=== PATIENT | female | born 1965 | race Hispanic/Latino ===

== ENCOUNTER 2021-01-16 07:26 | Observation (INO) | payer MEDICARE ==
[2021-01-16] VITALS (7 sets, daily range): BP systolic 102–167; BP diastolic 62–92
[~2021-01-16] VITALS: Ht 236.2 cm; Wt 141.3 kg
[~2021-01-16 07:26] MED LIST: ACET-2247 PO; APIX2.5T PO; HYDR-4060 PO; LEVO200T10 PO; VITAMIN D3 PO
[2021-01-16] MEDS ORDERED: MORPHINE 4 MG SYG IVP ONE (08:00)
[2021-01-16] MEDS ORDERED: ONDANSETRON 4MG INJ IVP ONE (08:00)
[2021-01-16 08:36] LABS: BASOPHILS % (AUTO) 0.2 % (0.0-5.0); EOSINOPHILS % (AUTO) 4.3 % (0.0-8.0); HEMATOCRIT 30.7 % (36-48); LYMPHOCYTES % (AUTO) 28.9 % (21.0-51.0); MEAN CORPUSCULAR HEMOGLOBIN 26.8 pg (27.0-33.0); MEAN CORPUSCULAR VOLUME 92.5 fL (79-99); MONOCYTES % (AUTO) 6.5 % (3.0-13.0); NEUTROPHILS % (AUTO) 59.4 % (40.0-77.0); PLATELET COUNT (AUTO) 250 K/uL (130-400); RED BLOOD CELL COUNT(AUTO) 3.32 MIL/uL (4.00-5.50); RED CELL DISTRIBUTION WIDTH 14.7 % (11.0-15.5)
[2021-01-16 08:46] LABS: CARBON DIOXIDE 29 mmol/L (21-32); CHLORIDE 108 mmol/L (101-111); CREATININE 0.9 mg/dL (0.5-1.5); GLOMERULAR FILTR. RATE CALC 69 mL/min (>60); GLUCOSE,RANDOM 100 mg/dL (70-105); POTASSIUM 3.4 mmol/L (3.5-5.1); SODIUM SERUM 144 mmol/L (136-145); UREA NITROGEN, BLOOD 16 mg/dL (7-18)
[2021-01-16 08:50] LABS: ALANINE AMINOTRANSFERASE 50 U/L (12-78); ALBUMIN 2.9 g/dL (3.5-5.0); AMYLASE 23 U/L (25-115); ASPARTATE AMINOTRANSFERASE 41 U/L (10-37); BILIRUBIN,TOTAL 0.4 mg/dL (0.2-1.0); TOTAL PROTEIN, SERUM 6.6 g/dL (6.0-8.3)
[2021-01-16 08:54] LABS: LIPASE < 50 U/L (114-286)
[2021-01-16] MEDS ORDERED: IOHEXOL 350 MG/ML 100ML INFUS..BTL IV ONE (09:53)
[2021-01-16 11:01] LABS: APPEARANCE,URINE Clear (CLEAR); BILIRUBIN,URINE Negative (NEGATIVE); COLOR,URINE Yellow (YELLOW); GLUCOSE, URINE (UA) Negative (NEGATIVE); KETONES,URINE Trace mg/dL (NEGATIVE); LEUKOCYTE ESTERASE ,URINE Negative (NEGATIVE); NITRATE,URINE Negative (NEGATIVE); OCCULT BLOOD,URINE Negative (NEGATIVE); PROTEIN,URINE POS 1+ mg/dL (NEGATIVE)
[2021-01-16 11:03] LABS: BACTERIA,URINE Rare /HPF (None Seen); RBC,URINE 0-1 /HPF (0-1); SQUAMOUS EPITHELIAL CELL,UR Rare /HPF (0-2); WBC,URINE 0-1 /HPF (0-1)
[2021-01-16 11:06] LABS: HCG,QUAL RESULT NEGATIVE (NEGATIVE)
[2021-01-16] MEDS ORDERED: MORPHINE 4 MG SYG ONE (11:18)
[2021-01-16] MEDS: MORPHINE 4 MG SYG IV SCH (11:30)
[2021-01-16 11:56] LABS: INR 1.06 (0.85-1.15); PROTHROMBIN TIME 11.5 SEC (9.6-11.6)
[2021-01-16] MEDS ORDERED: LACTULOSE 20 GM/30 ML UDCUP PO PRN (13:00)
[2021-01-16] MEDS ORDERED: PIP/TAZ ZOSYN 3.375G 3.375 GM VIAL IVPB SCH (13:00)
[2021-01-16] MEDS ORDERED: ONDANSETRON 4MG INJ IVP PRN (13:00)
[2021-01-16] MEDS ORDERED: 0.9%NACL 50ML IV SCH (13:00)
[2021-01-16] MEDS ORDERED: LIDOCAINE HCL-MPF 1% 2ML VIAL IV PRN ×2 (13:00)
[2021-01-16] MEDS ORDERED: ACETAMINOPHEN 650MG ER TAB PO PRN (13:00)
[2021-01-16] MEDS ORDERED: POTASSIUM CHLORIDE 10% ELIXIR 20 MEQ/15 ML UDCUP PO PRN (13:00)
[2021-01-16] MEDS ORDERED: POTASSIUM CHLORIDE 20MEQ/100ML 100 ML IV PRN ×2 (13:00)
[2021-01-16] MEDS: LACTATED RINGERS 1000ML 1,000 ML IV SCH (13:01)
[2021-01-16] MEDS: KCL 20 MEQ ERTAB PO PRN ×2 (13:14→15:06)
[2021-01-16] MEDS: ZOSYN 3.375GM+NS 50ML 50 ML IV SCH ×2 (13:17→21:05)
[2021-01-16] MEDS: HYDROCODONE/ACETAMINOPHEN 5/325 MG TAB PO PRN (15:11)
[2021-01-16] MEDS: MORPHINE 2 MG SYG IVP PRN (19:33)
[2021-01-16] MEDS ORDERED: 0.9%NACL 100ML 100 ML ONE (21:03)
[2021-01-16] MEDS: FAMOTIDINE 20MG VIAL IV SCH (21:05)
[2021-01-17] VITALS (7 sets, daily range): BP systolic 98–128; BP diastolic 56–77
[2021-01-17] MEDS: MORPHINE 2 MG SYG IVP PRN ×4 (00:16→19:27)
[2021-01-17 00:52] LABS: HEMATOCRIT 29.6 % (36-48)
[2021-01-17] MEDS: GUAIFENESIN-DM 200/20 MG 10 ML PO PRN ×3 (03:49→21:58)
[2021-01-17 04:48] LABS: BASOPHILS % (AUTO) 0.3 % (0.0-5.0); EOSINOPHILS % (AUTO) 11.6 % (0.0-8.0); HEMATOCRIT 27.7 % (36-48); LYMPHOCYTES % (AUTO) 22.4 % (21.0-51.0); MEAN CORPUSCULAR HEMOGLOBIN 26.3 pg (27.0-33.0); MEAN CORPUSCULAR HGB CONC 28.5 g/dL (32.0-36.0); MEAN CORPUSCULAR VOLUME 92.3 fL (79-99); NEUTROPHILS % (AUTO) 55.8 % (40.0-77.0); PLATELET COUNT (AUTO) 223 K/uL (130-400); RED CELL DISTRIBUTION WIDTH 15.1 % (11.0-15.5); WHITE BLOOD COUNT (AUTO) 10.5 K/uL (4.8-10.8)
[2021-01-17 04:59] LABS: CREATININE 0.9 mg/dL (0.5-1.5); POTASSIUM 4.3 mmol/L (3.5-5.1)
[2021-01-17] MEDS: ZOSYN 3.375GM+NS 50ML 50 ML IV SCH ×3 (06:05→19:29)
[2021-01-17] MEDS: LACTATED RINGERS 1000ML 1,000 ML IV SCH ×2 (06:08→16:10)
[2021-01-17 08:09] LABS: HEMATOCRIT 27.3 % (36-48)
[2021-01-17] MEDS: FAMOTIDINE 20MG VIAL IV SCH ×2 (08:37→19:29)
[2021-01-17] MEDS: MORPHINE 4 MG SYG IV SCH (11:30)
[2021-01-17 11:38] LABS: HEMATOCRIT 28.3 % (36-48)
[2021-01-17] MEDS: HYDROCODONE/ACETAMINOPHEN 5/325 MG TAB PO PRN ×2 (12:46→16:45)
[2021-01-17] MEDS: BENZONATATE 100 MG CAPSULE PO PRN (16:43)
[2021-01-18] VITALS: BP 136/67
[2021-01-18 04:00] VITALS: BP 142/78
[2021-01-18] MEDS: LACTATED RINGERS 1000ML 1,000 ML IV SCH (04:07)
[2021-01-18 04:36] LABS: HEMATOCRIT 27.4 % (36-48); MEAN CORPUSCULAR HEMOGLOBIN 26.8 pg (27.0-33.0); MEAN CORPUSCULAR HGB CONC 29.2 g/dL (32.0-36.0); MEAN CORPUSCULAR VOLUME 91.6 fL (79-99); RED BLOOD CELL COUNT(AUTO) 2.99 MIL/uL (4.00-5.50); RED CELL DISTRIBUTION WIDTH 14.9 % (11.0-15.5); WHITE BLOOD COUNT (AUTO) 10.6 K/uL (4.8-10.8)
[2021-01-18] MEDS: ZOSYN 3.375GM+NS 50ML 50 ML IV SCH (04:39)
[2021-01-18] MEDS: GUAIFENESIN-DM 200/20 MG 10 ML PO PRN ×2 (04:39→09:40)
[2021-01-18] MEDS: BENZONATATE 100 MG CAPSULE PO PRN ×2 (04:39→16:05)
[2021-01-18 04:47] LABS: CREATININE 0.8 mg/dL (0.5-1.5); POTASSIUM 4.3 mmol/L (3.5-5.1)
[2021-01-18 07:45] VITALS: BP 150/72
[2021-01-18 11:29] VITALS: BP 126/70
[2021-01-18] MEDS: MORPHINE 4 MG SYG IV SCH (11:30)
[2021-01-18 15:52] VITALS: BP 110/66
== END 2021-01-18 17:14 | disposition home or self-care (01) ==
LOC: EDH 07:26 → EDHIP 12:37 → 4DH 01-17 01:25
PROVIDERS: ADMIT Internal Medicine Critical Care Medicine; ATTEND Internal Medicine Critical Care Medicine
DX: S30.1XXA Contusion of abdominal wall, initial encounter (principal); R05 Cough; K76.0 Fatty (change of) liver, not elsewhere classified; K57.90 Diverticulosis of intestine, part unspecified, without perforation or abscess without bleeding; E66.01 Morbid (severe) obesity due to excess calories; E03.9 Hypothyroidism, unspecified; M06.9 Rheumatoid arthritis, unspecified; Z96.651 Presence of right artificial knee joint; Z98.891 History of uterine scar from previous surgery; Z90.49 Acquired absence of other specified parts of digestive tract; Z79.899 Other long term (current) drug therapy; Z98.890 Other specified postprocedural states; Z79.01 Long term (current) use of anticoagulants; Z79.890 Hormone replacement therapy; Z68.25 Body mass index [BMI] 25.0-25.9, adult; X58.XXXA Exposure to other specified factors, initial encounter; Y92.89 Other specified places as the place of occurrence of the external cause; Y93.89 Activity, other specified; Y99.8 Other external cause status
CPT/HCPCS: 36415 ×3; 71045; 74177; 80048 ×2; 80053; 81001; 81025; 82150; 83690; 85014 ×5; 85018 ×5; 85025 ×2; 85027; 85610; 85730; 96361 ×2; 96365; 96366 ×3; 96375; 96376 ×2; 97039; 97161; 99285; G0378 ×52; G8978; G8979; G8980; G8981; G8982; G8983; J2270 ×2; J2405 ×2; J2543 ×6; J3490 ×3; J7120 ×2; Q9967

== ENCOUNTER → 2021-12-11 | Outpatient (CLI) | payer OTHER ==
[~2021-12-11] MED LIST changes: -APIX2.5T PO; -HYDR-4060 PO
== END | disposition home or self-care (01) ==
LOC: RAH 14:41
PROVIDERS: ATTEND Family Medicine
DX: N64.4 Mastodynia (principal); R92.8 Other abnormal and inconclusive findings on diagnostic imaging of breast
CPT/HCPCS: 77066

== ENCOUNTER → 2022-04-28 | Outpatient (CLI) | payer OTHER ==
[~2022-04-28] MED LIST changes: -ACET-2247 PO; +APIX2.5T PO; +CEPH500B PO; +ERGO500093 PO; +HYDR-4060 PO; +NITR100C4 PO; +PRED10TA23 PO; +VALS80TA30 PO; -VITAMIN D3 PO
== END | disposition home or self-care (01) ==
LOC: RAH 14:35
PROVIDERS: ATTEND Family Medicine
DX: N60.01 Solitary cyst of right breast (principal); N64.4 Mastodynia

== ENCOUNTER 2022-08-13 15:14 | Emergency (ER) | payer OTHER ==
[~2022-08-13] VITALS: Ht 160 cm; Wt 120.7 kg
[2022-08-13 18:26] LABS: APPEARANCE,URINE CLEAR (CLEAR); BILIRUBIN,URINE NEGATIVE (NEGATIVE); COLOR,URINE LIGHT-YELLOW (YELLOW); GLUCOSE, URINE (UA) NEGATIVE (NEGATIVE); KETONES,URINE NEGATIVE (NEGATIVE); LEUKOCYTE ESTERASE ,URINE NEGATIVE Leu/uL (NEGATIVE); NITRATE,URINE NEGATIVE (NEGATIVE); OCCULT BLOOD,URINE NEGATIVE (NEGATIVE); PROTEIN,URINE NEGATIVE (NEGATIVE); UROBILINOGEN,URINE 0.2 mg/dL (0.2-1.0)
[2022-08-13 18:29] LABS: BASOPHILS % (AUTO) 0.2 % (0.0-5.0); HEMATOCRIT 39.9 % (36-48); LYMPHOCYTES % (AUTO) 13.6 % (21.0-51.0); MEAN CORPUSCULAR HEMOGLOBIN 27.9 pg (27.0-33.0); MEAN CORPUSCULAR HGB CONC 31.6 g/dL (32.0-36.0); MEAN CORPUSCULAR VOLUME 88.5 fL (79-99); MONOCYTES % (AUTO) 3.5 % (3.0-13.0); NEUTROPHILS % (AUTO) 82.1 % (40.0-77.0); PLATELET COUNT (AUTO) 190 K/uL (130-400); RED BLOOD CELL COUNT(AUTO) 4.51 MIL/uL (4.00-5.50); WHITE BLOOD COUNT (AUTO) 5.1 K/uL (4.8-10.8)
[2022-08-13 18:31] LABS: MUCUS,URINE RARE LPF (None Seen); RBC,URINE 0-1 /HPF (0-1); SQUAMOUS EPITHELIAL CELL,UR RARE /HPF (0-2); YEAST,URINE BUDDING RARE /HPF (None Seen)
[2022-08-13 18:44] LABS: POTASSIUM 4.7 mmol/L (3.5-5.1)
[2022-08-13 18:48] LABS: ALBUMIN 3.6 g/dL (3.5-5.0); TOTAL PROTEIN, SERUM 7.9 g/dL (6.0-8.3)
[2022-08-13 19:09] VITALS: BP 134/60
== END 2022-08-13 20:15 | disposition home or self-care (01) ==
LOC: EDH 15:14
DX: R51.9 Headache, unspecified (principal); I10 Essential (primary) hypertension; Z79.899 Other long term (current) drug therapy
CPT/HCPCS: 36415; 70450; 70490; 71045; 80053; 81001; 84484; 85025; 93005

== ENCOUNTER 2022-11-27 19:26 | Emergency (ER) | payer OTHER ==
[~2022-11-27] VITALS: Ht 160 cm; Wt 111.6 kg
[2022-11-27 20:34] VITALS: BP 177/93
[2022-11-27 22:33] LABS: BASOPHILS % (AUTO) 0.3 % (0.0-5.0); EOSINOPHILS % (AUTO) 0.8 % (0.0-8.0); HEMATOCRIT 39.4 % (36-48); LYMPHOCYTES % (AUTO) 14.8 % (21.0-51.0); MEAN CORPUSCULAR HEMOGLOBIN 28.1 pg (27.0-33.0); MEAN CORPUSCULAR HGB CONC 31.2 g/dL (32.0-36.0); MEAN CORPUSCULAR VOLUME 90.2 fL (79-99); MONOCYTES % (AUTO) 6.9 % (3.0-13.0); NEUTROPHILS % (AUTO) 76.8 % (40.0-77.0); PLATELET COUNT (AUTO) 228 K/uL (130-400); RED BLOOD CELL COUNT(AUTO) 4.37 MIL/uL (4.00-5.50); RED CELL DISTRIBUTION WIDTH 13.1 % (11.0-15.5); WHITE BLOOD COUNT (AUTO) 11.3 K/uL (4.8-10.8)
[2022-11-27 22:41] LABS: POTASSIUM 4.4 mmol/L (3.5-5.1)
[2022-11-27 22:46] LABS: ALBUMIN 3.6 g/dL (3.5-5.0); TOTAL PROTEIN, SERUM 7.7 g/dL (6.0-8.3)
[2022-11-27] MEDS ORDERED: IOHEXOL-350 75 ML VIAL IV ONE (23:59)
[2022-11-28] MEDS ORDERED: ACETAMINOPHEN 500 MG TABLET PO ONE
== END 2022-11-28 01:01 | disposition home or self-care (01) ==
LOC: EDH 19:26
DX: M54.2 Cervicalgia (principal); E11.9 Type 2 diabetes mellitus without complications; I10 Essential (primary) hypertension; Z79.52 Long term (current) use of systemic steroids; Z86.16 Personal history of COVID-19; Z98.890 Other specified postprocedural states
CPT/HCPCS: 99285; 70491; 80053; 85025; 36415; Q9967

== ENCOUNTER 2023-04-02 08:36 | Emergency (ER) | payer OTHER ==
[~2023-04-02] VITALS: Ht 160 cm; Wt 111.6 kg
[2023-04-02] MEDS ORDERED: DIAZEPAM 5 MG TABLET PO ONE (09:30)
[2023-04-02] MEDS ORDERED: KETOROLAC 60 MG VIAL (30MG/ML) IM ONE (09:30)
[2023-04-02] MEDS ORDERED: DEXAMETHASONE SOD PHOSPHATE 4 MG/ML 1ML VIAL IM ONE (09:30)
[2023-04-02] MEDS ORDERED: PRED20TA3 PO (10:52)
[2023-04-02 11:05] VITALS: BP 144/87; PULSE 67; RESP 18; O2SAT 98
== END 2023-04-02 11:05 | disposition home or self-care (01) ==
LOC: EDH 08:36
DX: M16.12 Unilateral primary osteoarthritis, left hip (principal); G89.29 Other chronic pain; E11.9 Type 2 diabetes mellitus without complications; I10 Essential (primary) hypertension; Z79.52 Long term (current) use of systemic steroids; Z79.890 Hormone replacement therapy
CPT/HCPCS: 99284; 73521; 96372 ×2; J1100; J1885

== ENCOUNTER → 2023-11-16 | Outpatient (CLI) | payer OTHER ==
[~2023-11-16] MED LIST changes: +PRED20TA3 PO
== END | disposition home or self-care (01) ==
LOC: RAH 09:47
PROVIDERS: ATTEND Family Medicine
DX: I10 Essential (primary) hypertension (principal); I73.9 Peripheral vascular disease, unspecified
CPT/HCPCS: 71046

== ENCOUNTER → 2023-12-22 | Outpatient (CLI) | payer OTHER | END | disposition home or self-care (01) | LOC: RAH 07:54 | PROVIDERS: ATTEND Family Medicine | DX: Z12.31 Encounter for screening mammogram for malignant neoplasm of breast (principal) | CPT/HCPCS: 77067 ==